=== PATIENT | male | born 1990 | race Caucasian/White ===

== ENCOUNTER 2018-05-28 21:27 | Emergency (ER) | payer MEDICAID ==
[~2018-05-28] VITALS: Ht 190.5 cm; Wt 74.7 kg
[~2018-05-28 21:27] MED LIST: HYDR-569 PO; NAPR-1144 PO
[2018-05-28] MEDS ORDERED: ondansetron/PF 4mg/2ml inj IV ONE (22:20)
[2018-05-28] MEDS ORDERED: morphine 4 MG/ML inj SYRINge IV ONE (22:20)
[2018-05-28] MEDS ORDERED: normal saline 1000ML IV soln IVB ONE (22:20)
[2018-05-28 22:33] LABS: BASOPHILS % (AUTO) 0 % (0-1); EOSINOPHILS # (AUTO) 0.1 X10'3 (0-0.9); HEMATOCRIT 45.3 % (42.0-52.0); HEMOGLOBIN 15.4 g/dl (14.0-17.9); LYMPHOCYTES # (AUTO) 0.4 X10'3 (1.1-4.8); LYMPHOCYTES % (AUTO) 3.3 % (21-51); MEAN CORPUSCULAR HEMOGLOBIN 28.1 PG (27.0-31.0); MEAN CORPUSCULAR HGB CONC 33.9 % (33.0-36.5); MEAN CORPUSCULAR VOLUME 82.8 FL (78-98); MEAN PLATELET VOLUME 7.4 FL (7.4-10.4); MONOCYTES # (AUTO) 0.5 X10'3 (0-0.9); MONOCYTES % (AUTO) 3.9 % (2-12); NEUTROPHILS # (AUTO) 11.3 X10'3 (1.8-7.7); NEUTROPHILS % (AUTO) 91.8 % (42-75); PLATELET COUNT 282 X10'3 (140-440); RED BLOOD COUNT 5.47 X10'6 (4.70-6.10); RED CELL DISTRIBUTION WIDTH 13.3 % (11.5-14.5); WHITE BLOOD COUNT 12.3 X10'3 (4.5-11.0)
[2018-05-28 22:47] LABS: ALANINE AMINOTRANSFERASE 26 U/L (12-78); ALBUMIN 4.3 G/DL (3.4-5.0); ALBUMIN/GLOBULIN RATIO 1.2 (1.1-1.5); ALKALINE PHOSPHATASE 78 IU/L (46-116); ANION GAP 9 (8-16); ASPARTATE AMINO TRANSFERASE 17 U/L (10-37); BLOOD UREA NITROGEN 12 MG/DL (7-18); BUN/CREATININE RATIO 12.6 (5.4-32.0); CHLORIDE 101 MMOL/L (99-107); CREATININE 0.95 MG/DL (0.60-1.10); GLUCOSE 110 MG/DL (70-104); LIPASE 155 U/L (73-393); POTASSIUM 3.9 MMOL/L (3.5-5.1); SODIUM 139 MMOL/L (135-145); TOTAL CARBON DIOXIDE 29.5 MMOL/L (24-32); TOTAL PROTEIN 7.9 G/DL (6.4-8.2); eGFR > 90 ML/MIN
[2018-05-28] MEDS ORDERED: ONDA8TAB9 PO (23:32)
[2018-05-28 23:41] VITALS: BP 148/92
== END 2018-05-28 23:43 | disposition home or self-care (01) ==
LOC: ER 21:27
DX: R11.10 Vomiting, unspecified (principal); R19.7 Diarrhea, unspecified; R10.84 Generalized abdominal pain; F12.90 Cannabis use, unspecified, uncomplicated; Z79.899 Other long term (current) drug therapy
CPT/HCPCS: 36415; 80053; 83690; 85025; 96361; 96374; 96375; 99284; J2270; J2405; J7030

== ENCOUNTER 2018-09-19 17:05 | Emergency (ER) | payer MEDICAID ==
[~2018-09-19] VITALS: Ht 188 cm; Wt 78.9 kg
[~2018-09-19 17:05] MED LIST changes: +HYDR-4383 PO; -HYDR-569 PO; +ONDA8TAB9 PO
[2018-09-19 17:31] VITALS: BP 123/68
[2018-09-19] MEDS ORDERED: AMOX-422 PO (18:39)
== END 2018-09-19 19:10 | disposition home or self-care (01) ==
LOC: ER 17:05
DX: K04.7 Periapical abscess without sinus (principal); S70.01XA Contusion of right hip, initial encounter; K02.9 Dental caries, unspecified; F12.90 Cannabis use, unspecified, uncomplicated; W19.XXXA Unspecified fall, initial encounter; Y93.89 Activity, other specified; Y92.219 Unspecified school as the place of occurrence of the external cause; Y99.8 Other external cause status
CPT/HCPCS: 99283

== ENCOUNTER 2018-12-24 16:42 | Emergency (ER) | payer MEDICAID ==
[~2018-12-24] VITALS: Ht 190.5 cm; Wt 79.2 kg
[2018-12-24 17:17] VITALS: BP 129/85
[2018-12-24] MEDS ORDERED: ketorolac trometh inj. 60 MG/2 ML VIAL IM ONE (18:55)
[2018-12-24] MEDS ORDERED: CLIN300C70 PO (19:00)
[2018-12-24] MEDS ORDERED: IBUP-1984 PO (19:00)
[2018-12-24] MEDS ORDERED: HYDR-4383 PO (19:00)
== END 2018-12-24 19:27 | disposition home or self-care (01) ==
LOC: ER 16:42
DX: K04.7 Periapical abscess without sinus (principal); K02.9 Dental caries, unspecified; F12.90 Cannabis use, unspecified, uncomplicated; Z79.899 Other long term (current) drug therapy
CPT/HCPCS: 96372; 99283; J1885

== ENCOUNTER 2019-04-22 15:18 | Emergency (ER) | payer MEDICAID ==
[~2019-04-22] VITALS: Ht 190.5 cm; Wt 77.3 kg
[~2019-04-22 15:18] MED LIST changes: +LIDOcaine 1% W/epiNEPHrine 1:100,000 20ml vial ONE
[2019-04-22 18:18] VITALS: BP 121/65
== END 2019-04-22 18:00 | disposition home or self-care (01) ==
LOC: ER 15:18
DX: S61.411A Laceration without foreign body of right hand, initial encounter (principal); F12.90 Cannabis use, unspecified, uncomplicated; Z79.899 Other long term (current) drug therapy; W26.8XXA Contact with other sharp object(s), not elsewhere classified, initial encounter; Y93.89 Activity, other specified; Y92.89 Other specified places as the place of occurrence of the external cause; Y99.8 Other external cause status
CPT/HCPCS: 12002; 99283

== ENCOUNTER 2019-06-07 00:18 | Emergency (ER) | payer MEDICAID ==
[~2019-06-07] VITALS: Ht 190.5 cm; Wt 77.0 kg
[~2019-06-07 00:18] MED LIST changes: -LIDOcaine 1% W/epiNEPHrine 1:100,000 20ml vial ONE
[2019-06-07] MEDS ORDERED: ibuprofen tablet 400 MG TABLET PO ONE (00:55)
[2019-06-07 01:06] VITALS: BP 120/71
== END 2019-06-07 01:09 | disposition home or self-care (01) ==
LOC: ER 00:19
DX: R07.89 Other chest pain (principal); J45.909 Unspecified asthma, uncomplicated; Z79.899 Other long term (current) drug therapy
CPT/HCPCS: 99283

== ENCOUNTER 2019-08-31 17:21 | Emergency (ER) | payer MEDICAID ==
[~2019-08-31] VITALS: Ht 190.5 cm; Wt 76.0 kg
[2019-08-31 17:39] VITALS: BP 116/70
== END 2019-08-31 19:59 | disposition home or self-care (01) ==
LOC: ER 17:22
DX: S33.5XXA Sprain of ligaments of lumbar spine, initial encounter (principal); J45.909 Unspecified asthma, uncomplicated; Z79.899 Other long term (current) drug therapy; X50.1XXA Overexertion from prolonged static or awkward postures, initial encounter; Y93.89 Activity, other specified; Y92.89 Other specified places as the place of occurrence of the external cause; Y99.8 Other external cause status
CPT/HCPCS: 72100; 99283

== ENCOUNTER 2019-10-25 02:21 | Emergency (ER) | payer MEDICAID ==
[~2019-10-25] VITALS: Ht 190.5 cm; Wt 72.7 kg
[2019-10-25] MEDS ORDERED: AMOX500C2 PO (02:32)
[2019-10-25] MEDS ORDERED: amoxicillin 250mg capsule PO ONE (02:35)
[2019-10-25] MEDS ORDERED: acetaminophen 325mg tablet PO ONE (02:35)
[2019-10-25] MEDS ORDERED: AMO250L PO (02:43)
[2019-10-25 02:46] VITALS: BP 126/68
== END 2019-10-25 02:50 | disposition home or self-care (01) ==
LOC: ER 02:21
DX: K08.89 Other specified disorders of teeth and supporting structures (principal); J45.909 Unspecified asthma, uncomplicated; Z87.11 Personal history of peptic ulcer disease; Z79.899 Other long term (current) drug therapy
CPT/HCPCS: 99283

== ENCOUNTER 2021-03-19 02:46 | Emergency (ER) | payer MEDICAID ==
[~2021-03-19] VITALS: Ht 188 cm; Wt 80.0 kg
[2021-03-19 03:30] VITALS: BP 119/80
[2021-03-19] MEDS ORDERED: PENI500T2 PO (07:26)
== END 2021-03-19 07:43 | disposition home or self-care (01) ==
LOC: ER 02:47
DX: K08.89 Other specified disorders of teeth and supporting structures (principal); J45.909 Unspecified asthma, uncomplicated; Z87.11 Personal history of peptic ulcer disease; Z79.2 Long term (current) use of antibiotics; Z79.899 Other long term (current) drug therapy
CPT/HCPCS: 99283

== ENCOUNTER 2021-04-15 17:04 | Emergency (ER) | payer MEDICAID ==
[~2021-04-15] VITALS: Ht 188 cm; Wt 69.0 kg
[~2021-04-15 17:04] MED LIST changes: +PENI500T2 PO
[2021-04-15 17:36] VITALS: BP 106/72
[2021-04-15] MEDS ORDERED: AMOX-117 PO (18:56)
[2021-04-15] MEDS ORDERED: TETanus/Pertussis (Acell)/Diphther VAC/PF (Tdap-Adult) 0.5ml syringe IMVAC ONE (19:00)
== END 2021-04-15 19:45 | disposition home or self-care (01) ==
LOC: ER 17:04
DX: K04.7 Periapical abscess without sinus (principal); J45.909 Unspecified asthma, uncomplicated; Z79.1 Long term (current) use of non-steroidal anti-inflammatories (NSAID); Z79.891 Long term (current) use of opiate analgesic; Z79.899 Other long term (current) drug therapy
CPT/HCPCS: 90471; 90715; 99283

== ENCOUNTER 2023-07-25 07:50 | Emergency (ER) | payer MEDICAID ==
[~2023-07-25] VITALS: Ht 188 cm; Wt 71.1 kg
[~2023-07-25 07:50] MED LIST changes: -PENI500T2 PO
[2023-07-25] MEDS ORDERED: LACT10SO3 PO (08:46)
[2023-07-25 09:09] VITALS: BP 111/78; PULSE 80; RESP 16; TEMP 98.5; O2SAT 99
== END 2023-07-25 09:10 | disposition home or self-care (01) ==
LOC: ER 07:50
DX: K59.00 Constipation, unspecified (principal); J45.909 Unspecified asthma, uncomplicated; Z79.899 Other long term (current) drug therapy
CPT/HCPCS: 99284